=== PATIENT | female | born 1995 | race Caucasian/White ===

== ENCOUNTER 2017-01-10 13:44 | Emergency (ER) | payer BC ==
[2017-01-10 14:23] VITALS: BP 111/62
--- NOTE | 2017-01-10 14:51 | UC ---
Skin Complaint HPI - HPI Summary HPI Summary: 21 year old female presents with complains of ulcerations in her mouth. - History of Current Complaint Chief Complaint: UCSkin Time Seen by Provider: 01/10/17 14:31 Stated Complaint: SORES INSIDE OF MOUTH Hx Obtained From: Patient Hx Last Menstrual Period: Unknown Onset/Duration: Sudden Onset Skin Exposure Onset/Duration: Days Ago Onset Severity: Moderate Current Severity: Moderate - Allergy/Home Medications Allergies/Adverse Reactions: Allergies Allergy/AdvReac Type Severity Reaction Status Date / Time No Known Allergies Allergy Unverified 01/10/17 14:23 Review of Systems Constitutional: Negative Skin: Negative Eyes: Negative ENT: Other - mouth ulcers Respiratory: Negative Cardiovascular: Negative Gastrointestinal: Negative Genitourinary: Negative Motor: Negative Neurovascular: Negative Musculoskeletal: Negative Neurological: Negative Psychological: Negative All Other Systems Reviewed And Are Negative: Yes PMH/Surg Hx/FS Hx/Imm Hx Previously Healthy: Yes Other History Of: Negative For: Anticoagulant Therapy - Surgical History Surgical History: None - Family History Known Family History: Positive: None, Hypertension, Other - skin cancer - Social History Alcohol Use: Occasionally Alcohol Amount: 2 times a week, went to rehab Substance Use Type: None, Other Substance Use Comment - Amount & Last Used: went to rehab Smoking Status (MU): Heavy Every Day Tobacco Smoker Type: Cigarettes Amount Used/How Often: 1 ppd Have You Smoked in the Last Year: Yes Household Exposure Type: Cigarettes - Immunization History Most Recent Influenza Vaccination: 2014 Most Recent Tetanus Shot: up to date Most Recent Pneumonia Vaccination: never Physical Exam Triage Information Reviewed: Yes Appearance: Well-Appearing Vital Signs: Initial Vital Signs Temp 37.1 C 01/10/17 14:15 Pulse 108 01/10/17 14:15 Resp 18 01/10/17 14:15 BP 111/62 01/10/17 14:15 Pulse Ox 100 01/10/17 14:15 Eye Exam: Normal ENT: Positive: Other: - mouth ulcers Dental Exam: Normal Neck exam: Normal Neck: Positive: 1 Respiratory Exam: Normal Cardiovascular Exam: Normal Abdominal Exam: Normal Musculoskeletal Exam: Normal Neurological Exam: Normal Psychological Exam: Normal Skin Exam: Normal Course/Dx - Diagnoses Provider Diagnoses: canke sours. mouth ulcerations Discharge - Discharge Plan Condition: Stable Disposition: HOME Prescriptions: Amoxicillin PO (*) [Amoxicillin 500 MG CAP*] 500 mg PO TID #30 cap Magic M W2 Xavi/Maal/Nyst/Lido* 5 ml SWISH SPIT QID PRN #120 ml PRN Reason: Pain Triamcinolone PASTE 0.1% (NF) [Triamcinolone 0.1% PASTE *] 1 applic TOPICAL TID PRN #1 tube PRN Reason: Pain Patient Education Materials: Canker Sores (ED), Gingivostomatitis (ED) Referrals: Gopi Zambrano MD [Primary Care Provider] -
== END 2017-01-10 14:55 | disposition home or self-care (01) ==
LOC: UCEAST 13:44
DX: K12.0 Recurrent oral aphthae (principal); F17.210 Nicotine dependence, cigarettes, uncomplicated
CPT/HCPCS: 84702; 99212; G0463

== ENCOUNTER 2018-04-10 19:20 | Emergency (ER) | payer BC ==
[2018-04-10 20:12] VITALS: BP 128/61
--- NOTE | 2018-04-10 20:53 | UC ---
Complaint Female HPI - History Of Current Complaint Chief Complaint: UCGeneralIllness Stated Complaint: NAUSEOUS/NO APPETITE Time Seen by Provider: 04/10/18 20:39 Hx Obtained From: Patient Hx Last Menstrual Period: 03/10/18 ?: No - but trying to get Onset/Duration: Gradual Onset Pain Intensity: 0 Pain Scale Used: 0-10 Numeric Aggravating Factor(s): Nothing Alleviating Factor(s): Nothing - Allergies/Home Medications Allergies/Adverse Reactions: Allergies Allergy/AdvReac Type Severity Reaction Status Date / Time No Known Allergies Allergy Verified 04/10/18 20:13 PMH/Surg Hx/FS Hx/Imm Hx Previously Healthy: Yes Other History Of: Negative For: Anticoagulant Therapy - Surgical History Surgical History: None - Family History Known Family History: Positive: None, Hypertension, Other - skin cancer - Social History Alcohol Use: Occasionally Alcohol Amount: 2 times a week, went to rehab Substance Use Type: None Substance Use Comment - Amount & Last Used: went to rehab Smoking Status (MU): Heavy Every Day Tobacco Smoker Type: Cigarettes Amount Used/How Often: 1 ppd Have You Smoked in the Last Year: Yes Household Exposure Type: Cigarettes - Immunization History Most Recent Influenza Vaccination: 2014 Most Recent Tetanus Shot: up to date Most Recent Pneumonia Vaccination: never Review of Systems All Other Systems Reviewed And Are Negative: Yes Constitutional: Positive: Negative Skin: Positive: Negative Respiratory: Positive: Negative Cardiovascular: Positive: Negative Gastrointestinal: Positive: Nausea, Other - decr. appetite. Negative: Vomiting , Diarrhea Genitourinary: Negative: Dysuria Motor: Negative: Weakness Neurological: Negative: Headache, Weakness Physical Exam Triage Information Reviewed: Yes Appearance: Well-Appearing Vital Signs: Initial Vital Signs Temp 97.1 F 04/10/18 20:10 Pulse 89 04/10/18 20:10 Resp 16 04/10/18 20:10 BP 128/61 04/10/18 20:10 Pulse Ox 100 04/10/18 20:10 Vital Signs Reviewed: Yes ENT: Positive: Pharynx normal Respiratory Exam: Normal Cardiovascular Exam: Normal Abdominal Exam: Normal Neurological: Positive: Alert Skin Exam: Normal Complaint Female Dx - Course Course Of Treatment: Pt trying to get and has missed a period. today urine hcg is neg. and she divulged during visit how stressed she has been which may be causing some of her stomach lining irritation. she is concerned she may never get and has becoming anxious about the whole endeavor of trying to get . we discussed giving time for the process and tx'ing her sy; mptoms. offered diff. methods of tracking her period. has been in the past which is reassuring i explained to pt. of note exam was unremarkable, vitals good. - Differential Dx/Diagnosis Differential Diagnosis/HQI/PQRI: Urinary Tract Infection, Other Provider Diagnosis: Nausea Discharge - Sign-Out/Discharge Documenting (check all that apply): Patient Departure All imaging exams completed and their final reports reviewed: No Studies - Discharge Plan Condition: Good Disposition: HOME Prescriptions: Ranitidine TAB (NF) [Zantac TAB (NF)] 150 mg PO DAILY 30 Days #30 tab Patient Education Materials: Gastritis (ED) Referrals: Araseli Cottrell PA [Primary Care Provider] - Additional Instructions: Please start vitamins with DHA. Trial of acid reflux medication but please follow up with your pcp. - Billing Disposition and Condition Condition: GOOD Disposition: Home
== END 2018-04-10 21:07 | disposition home or self-care (01) ==
LOC: UCCORT 19:20
DX: R11.0 Nausea (principal); F17.210 Nicotine dependence, cigarettes, uncomplicated
CPT/HCPCS: 81003; 84702; 99212; G0463